=== PATIENT | male | born 1950 | race Caucasian/White ===

== ENCOUNTER → 2024-01-27 06:26 | Day surgery (SDC) | payer MEDICARE, OTHER, SELFPAY | LOC: GI 06:26 | PROVIDERS: ATTENDING PHYSICIAN Internal Medicine | DX: Z12.11 Encounter for screening for malignant neoplasm of colon (principal); Z80.0 Family history of malignant neoplasm of digestive organs; K83.01 Primary sclerosing cholangitis; K64.9 Unspecified hemorrhoids; K52.3 Indeterminate colitis; K52.89 Other specified noninfective gastroenteritis and colitis; K62.89 Other specified diseases of anus and rectum | CPT/HCPCS: 45380; 88305 ==

== ENCOUNTER → 2024-09-07 10:25 | Outpatient (REF) | payer MEDICARE, OTHER, SELFPAY ==
[2024-09-10 06:40] LABS: HPV, High Risk Not Detected; HPV, High Risk Source Anal
== END ==
LOC: CLAB 10:25
PROVIDERS: ATTENDING PHYSICIAN Internal Medicine
DX: Z94.4 Liver transplant status (principal)
CPT/HCPCS: 87624; 88112

== ENCOUNTER → 2025-04-21 11:34 | Outpatient (REF) | payer MEDICARE, OTHER, SELFPAY | LOC: MRI 3T 11:34 | PROVIDERS: ATTENDING PHYSICIAN Internal Medicine; FAMILY PHYSICIAN Family Medicine | DX: D49.0 Neoplasm of unspecified behavior of digestive system (principal); Z87.19 Personal history of other diseases of the digestive system | CPT/HCPCS: 72197; 74183; A9585 ==

== ENCOUNTER → 2025-05-07 11:06 | Outpatient (REF) | payer MEDICARE, OTHER, SELFPAY | LOC: RAD 11:06 | PROVIDERS: ATTENDING PHYSICIAN Internal Medicine; FAMILY PHYSICIAN Family Medicine | DX: K50.118 Crohn's disease of large intestine with other complication (principal); Z87.39 Personal history of other diseases of the musculoskeletal system and connective tissue; Z79.52 Long term (current) use of systemic steroids | CPT/HCPCS: 77080 ==

== ENCOUNTER 2025-05-13 06:25 | Day surgery (SDC) | payer MEDICARE, OTHER, SELFPAY | END 2025-05-13 16:19 | disposition home or self-care (01) | LOC: GI 06:25 | PROVIDERS: ATTENDING PHYSICIAN Internal Medicine | DX: K50.80 Crohn's disease of both small and large intestine without complications (principal); R93.3 Abnormal findings on diagnostic imaging of other parts of digestive tract; K57.30 Diverticulosis of large intestine without perforation or abscess without bleeding; K64.9 Unspecified hemorrhoids; K52.3 Indeterminate colitis; K83.01 Primary sclerosing cholangitis; K63.5 Polyp of colon; K62.1 Rectal polyp | CPT/HCPCS: 45385; 45380; 88305 ==

== ENCOUNTER → 2025-08-04 09:59 | Outpatient (REF) | payer MEDICARE, OTHER, SELFPAY | LOC: MRI 3T 09:59 | PROVIDERS: ATTENDING PHYSICIAN Internal Medicine; FAMILY PHYSICIAN Family Medicine | DX: K38.9 Disease of appendix, unspecified (principal); K50.819 Crohn's disease of both small and large intestine with unspecified complications | CPT/HCPCS: 72197; 74183; A9585 ==